=== PATIENT | female | born 1955 | race Caucasian/White ===

== ENCOUNTER 2017-12-10 16:25 | Emergency (ER) | payer BC, OTHER ==
[2017-12-10] MEDS: morphine 4 MG/ML VIAL IV (18:47)
== END 2017-12-10 19:48 | disposition home or self-care (01) ==
LOC: FTE 16:25
DX: R07.89 Other chest pain (principal)
CPT/HCPCS: 71250; 72125; 93005; 96374; 99285-25